=== PATIENT | female | born 1955 | race Two or more races ===

== ENCOUNTER 2024-04-23 00:34 | Emergency (ER) | payer MEDICARE, MEDICAID, SELFPAY ==
[2024-04-23] VITALS (9 sets, daily range): BP systolic 98–159; BP diastolic 65–84; PULSE 68–79; RESP 16–24; TEMP 36.7–36.8; O2SAT 93–100; BMI 26.5; BMI 25.6
--- NOTE | 2024-04-23 01:40 | PD.EDUPEX ---
Upper Extremity Injury RME/HPI General Chief Complaint: Extremity Injury, Upper Stated Complaint: LEFT ARM PAIN Arrival date/time: 04/23/24 00:34 Related Data Home Medications ?Medication ?Instructions ?Recorded ?Confirmed Hydrocodone/Acetaminophen * (NORCO 1 tab PO Q4H PRN Pain #0 tabs 04/05/15 09/29/23 10/325 *) albuterol sulfate 90 mcg/actuation 2 puff inhalation Q6HR PRN 04/05/15 09/29/23 aerosol inhaler (Proventil HFA) WHEEZING #0 inhalations gabapentin 300 mg capsule 300 mg PO QDAY #0 caps 04/05/15 09/29/23 ibuprofen 800 mg tablet 800 mg PO BID PRN PAIN #0 tabs 04/05/15 09/29/23 Held on 09/30/23. Instructions: until follow up with pcp loratadine 10 mg tablet (Claritin) 10 mg PO QDAY #0 tabs 04/05/15 09/29/23 sertraline 25 mg tablet (Zoloft) 25 mg PO HS #0 tabs 04/05/15 09/29/23 simvastatin 20 mg tablet (Zocor) 20 mg PO HS #0 tabs 04/05/15 09/29/23 tizanidine 4 mg tablet (Zanaflex) 4 mg PO Q6H #0 tabs 04/05/15 09/29/23 zolpidem 10 mg tablet (Ambien) 10 mg PO HS #0 tabs 04/05/15 09/29/23 meclizine 25 mg tablet 25 mg PO Q12H PRN Dizziness 09/29/23 09/29/23 Previous Rx's ?Medication ?Instructions ?Recorded Clotrimazole/Betamet Diprop LOTN * 1 appln TOP BID ##2 10/11/13 (LOTRISONE LOTN *) Allergies Allergy/AdvReac Type Severity Reaction Status Date / Time No Known Allergies Allergy Verified 09/28/23 18:54 Course Orders Category Date Time Status EKG (ED ONLY) *Do not use* NOW Care 04/23/24 01:02 Completed EKG (ED Only) Stat Exams 04/23/24 01:02 Ordered Vital Signs Vital signs: Vital Signs Temperature 98.1 F 04/23/24 00:46 Pulse Rate 68 04/23/24 00:46 Respiratory Rate 19 04/23/24 00:46 Blood Pressure 98/65 04/23/24 00:46 Pulse Oximetry (%) 95 04/23/24 00:46 Oxygen Delivery Method Room Air 04/23/24 00:46 Discharge Plan Prescriptions/Referrals Prescriptions/Med Rec: No Action Clotrimazole/Betamet Diprop LOTN * (LOTRISONE LOTN *) 30 ML lotion 1 appln TOP BID Qty: 2 0RF ibuprofen 800 MG tablet 800 mg PO BID PRN (Reason: PAIN) Qty: 0 tizanidine [Zanaflex] 4 MG tablet 4 mg PO Q6H Qty: 0 simvastatin [Zocor] 20 MG tablet 20 mg PO HS Qty: 0 gabapentin 300 MG capsule 300 mg PO QDAY Qty: 0 sertraline [Zoloft] 25 MG tablet 25 mg PO HS Qty: 0 zolpidem [Ambien] 10 MG tablet 10 mg PO HS Qty: 0 albuterol sulfate [Proventil HFA] 6.7 GM HFA aerosol inhaler 2 puff Inhalation Q6HR PRN (Reason: WHEEZING) Qty: 0 loratadine [Claritin] 10 MG tablet 10 mg PO QDAY Qty: 0 Hydrocodone/Acetaminophen * (NORCO 10/325 *) 1 TAB tablet 1 tab PO Q4H PRN (Reason: Pain) Qty: 0 meclizine 25 mg tablet 25 mg PO Q12H PRN (Reason: Dizziness) Patient Comments: TAKE ONE TABLET BY MOUTH EVERY TWELVE HOURS FOR DIZZINESS Patient/Caregiver Discharge Instructions Print Language: Italian
--- NOTE | 2024-04-23 02:10 | EDRME_ITS ---
Rapid Medical Screening Exam RME Arrival date/time: 04/23/24 00:34 Chief Complaint: Extremity Injury, Upper Vital signs: Vital Signs Temperature 98.1 F 04/23/24 00:46 Pulse Rate 68 04/23/24 00:46 Respiratory Rate 19 04/23/24 00:46 Blood Pressure 98/65 04/23/24 00:46 Pulse Oximetry (%) 95 04/23/24 00:46 Oxygen Delivery Method Room Air 04/23/24 00:46 RME Narrative: 68-year-old female with history of breast cancer presenting to the emergency department with chest pain that started approximately 8 PM which is intermittent and currently improved. Patient states the pain radiated to her left arm. No shortness of breath. The patient takes [place] at home for her chronic pain. I have greeted and performed a focused initial assessment of this patient. A comprehensive ED assessment and evaluation of the patient, analysis of all test results, and completion of the medical decision making process will be conducted by additional ED providers.
--- NOTE | 2024-04-23 02:16 | XR_ITS ---
Examination: AP chest single view Technique one AP portable upright chest single view Exam date and time: April 23, 2024 0220 hrs. Comparison September 26, 2023 Indications: Chest pain radiating to left arm today Findings: Mild to moderate enlargement cardiac contour Subtle opacity in the right middle lower lung zone Mild vascular congestion Prominent osteopenia Impression: Mild vascular congestion Suspicious for right mid and lower lung zone pneumonia
[2024-04-23 02:46] LABS: Basophils # (Auto) 0.1 Thou/mm3 (0.0-0.2); Basophils % (Auto) 0 % (0-2.5); Eosinophils % (Auto) 0 % (0-10); Hematocrit 32.3 % (36.0-46.0); Hemoglobin 10.8 g/dL (12.0-16.0); Immature Granulocytes % (Auto) 1 % (0-0); Immature Granulocytes Auto 0.08 Thou/mm3 (0.00-0.00); Lymphocytes # (Auto) 1.4 Thou/mm3 (1.0-4.8); Lymphocytes % (Auto) 8 % (10-50); Mean Corpuscular HGB Conc 33.4 g/dl (31.0-37.0); Mean Corpuscular Hemoglobin 28.1 pg (25.0-35.0); Mean Corpuscular Volume 84 fL (80-100); Monocytes # (Auto) 0.7 Thou/mm3 (0.0-0.8); Monocytes % (Auto) 4 % (0-12); Neutrophils % (Auto) 87 % (37-80); Nucleated Red Blood Cell % 0 /100 WBC (0); Platelet Count 410 Thou/mm3 (140-440); RDW Standard Deviation 50.1 fL (36.4-46.3); Red Blood Count 3.85 Miln/mm3 (4.00-5.20); White Blood Count 17.3 Thou/mm3 (3.6-11.0)
[2024-04-23] MEDS: HYDROcodone/APAP 10/325 TAB PO (02:58)
[2024-04-23] MEDS: SODIUM CHLORIDE 0.9% 500 ML 500 ML 999 ML IV (02:59)
[2024-04-23 03:08] LABS: B-Type Natriuretic Peptide 62 pg/mL (0-100)
[2024-04-23 03:20] LABS: Alanine Aminotransferase < 7 U/L (10-49); Albumin, Serum 4.1 gm/dL (3.4-4.8); Albumin/Globulin Ratio 1.3 (1.2-2.2); Alkaline Phosphatase 150 U/L (46-116); Anion Gap 9 (7-16); Aspartate Amino Transferase 10 U/L (0-34); BUN/Creatinine Ratio 14 Ratio (12-20); Bilirubin,Total 0.2 mg/dL (0.3-1.2); Blood Urea Nitrogen 19 mg/dL (9-23); Carbon Dioxide 21.4 mMol/L (20.0-31.0); Chloride 104 mMol/L (98-107); Creatinine (Component) 1.4 mg/dL (0.6-1.3); Estimated Creatinine Clearance 32.7 mL/min (>60); Globulin 3.1 gm/dL (2.3-3.5); Glucose 107 mg/dL (74-106); Osmolality,Calculated 270 (275-295); Potassium 4.6 mMol/L (3.4-5.1); Sodium 134 mMol/L (136-145); Total Protein 7.2 gm/dL (5.7-8.2); Troponin I < 0.002 ng/mL (0.0-0.045); eGFR 40 See Note
[2024-04-23] MEDS: LORazepam 2 MG/ML VIAL IVP (03:58)
[2024-04-23] MEDS: ALBUTEROL/IPRATROPIUM (Duoneb) RT SOL 3 ML NEBU INH (07:40)
[2024-04-23] MEDS: predniSONE 20 MG TABLET 60 MG PO (08:15)
--- NOTE | 2024-04-23 11:06 | EDNOTE_ITS ---
ED Chest Pain RME/HPI General Chief Complaint: Extremity Injury, Upper Stated Complaint: LEFT ARM PAIN Time Seen by Provider: 04/23/24 02:47 Arrival date/time: 04/23/24 00:34 RME / HPI RME / HPI narrative: 68-year-old female with history of breast cancer presenting to the emergency department with chest pain that started approximately 8 PM which is intermittent and currently improved. Patient states the pain radiated to her left arm. No shortness of breath. The patient takes [place] at home for her chronic pain. I have greeted and performed a focused initial assessment of this patient. A comprehensive ED assessment and evaluation of the patient, analysis of all test results, and completion of the medical decision making process will be conducted by additional ED providers. DR. MTZ MAIN ED EVALUATION: 68 year old female presents to the Emergency Department [facility] with complaint of left-sided pleuritic chest pain. Pain is described as aching and rated mild to moderate in severity. Patient also has a more than usual cough with productive sputum. PMHx: COPD, no home oxygen but does use an inhaler regularly, breast cancer, and chronic pain takes [place] Social Hx: She is a former smoker, last smoked a cigarette 2 years ago. Related Data Home Medications ?Medication ?Instructions ?Recorded ?Confirmed Hydrocodone/Acetaminophen * (NORCO 1 tab PO Q4H PRN Pa in #0 tabs 04/05/15 09/29/23 10/325 *) albuterol sulfate 90 mcg/actuation 2 puff inhalation Q 6HR PRN 04/05/15 09/29/23 aerosol inhaler (Proventil HFA) WHEEZING #0 inhalation s gabapentin 300 mg capsule 300 mg PO QDAY #0 caps 04/0509/29/23 ibuprofen 800 mg tablet 800 mg PO BID PRN PAIN #0 ta bs 04/05/15 09/29/23 Held on 09/30/23. Instructions: until follow up with pcp loratadine 10 mg tablet (Claritin) 10 mg PO QDAY #0 ta bs 04/05/15 09/29/23 sertraline 25 mg tablet (Zoloft) 25 mg PO HS #0 tabs 0 04/05/15 09/29/23 simvastatin 20 mg tablet (Zocor) 20 mg PO HS #0 tabs 0 04/05/15 09/29/23 tizanidine 4 mg tablet (Zanaflex) 4 mg PO Q6H #0 tabs 04/05/15 09/29/23 zolpidem 10 mg tablet (Ambien) 10 mg PO HS #0 tabs 01/0809/29/23 meclizine 25 mg tablet 25 mg PO Q12H PRN Dizziness 09/29/23 09/29/23 Previous Rx's ?Medication ?Instructions ?Recorded Clotrimazole/Betamet Diprop LOTN * 1 appln TOP BID ##2 10/11/13 (LOTRISONE LOTN *) doxycycline monohydrate 100 mg 100 mg PO BID #10 caps 04/23/24 capsule prednisone 50 mg tablet 50 mg PO QDAY #5 tabs Allergies Allergy/AdvReac Type Severity Reaction Status Date / Time No Known Allergies Allergy Verified 09/28/23 18:54 Review of Systems Review of Systems Systems Reviewed: All systems reviewed, normal except as documented Narrative Review of Systems: GEN: No fever, no chills, no weight loss EYES: No discharge, no visual changes, no pain HEENT: No ear pain, no congestion, no sore throat PULM: No shortness of breath, + more than usual cough with productive sputum CV: + left-sided pleuritic chest pain, no dyspnea on exertion, no palpitations GI: No nausea, no vomiting, no diarrhea, no pain, no constipation : No frequency, no urgency and no dysuria MUSC/SKEL: No joint pain, no back pain SKIN: No rash PSYCH: No hallucinations, no depression HEME/LYMPH: No easy bleeding or bruising tendencies NEURO: No weakness, no headache Past Medical History Past Medical History GASTROINTESTINAL: Positive Gastrointestinal Disorders and Gastroesophageal Reflux Disease PSYCHO/SOCIAL: Positive Anxiety Surgical History SURGICAL: Positive Mastectomy Social History SMOKING STATUS: Former smoker SUBSTANCE USE: does not use ALCOHOL: Never ED Exam Narrative Physical exam: GENERAL APPEARANCE: AxOx4, generally well-appearing, she is a little sleepy but arousable HEENT: NC, AT. MMM. EOMI, clear conjunctiva, oropharynx clear. NECK: Supple without lymphadenopathy. No stiffness or restricted ROM. HEART: Normal rate and regular rhythm, normal S1/S1, no m/r/g LUNGS: coarse rhonchi auscultated and some wheezing ABDOMEN: Soft, nontender, nondistended with good bowel sounds heard. BACK: No midline C/T/L spine pain or deformity, No CVAT, no obvious deformity. EXTREMITIES: Without cyanosis, clubbing or edema. MUSCULOSKELETAL: FROM of all major joints, no chest tenderness NEUROLOGICAL: Grossly nonfocal. Alert and oriented, moving all 4 extremities. CN not formally tested but appear grossly intact. Observed to ambulate with normal gait. Skin: Warm and dry without any rash. Course Quality Measures none Orders Category Date Time Status EKG (ED ONLY) *Do not use* NOW Care 04/23/24 01:02 Completed IV [Insert IV] STAT Care 04/23/24 02:15 Completed CXRP [XR chest 1V portable] Stat Exams 04/23/24 02:16 Completed EKG (ED Only) Stat Exams 04/23/24 01:02 Ordered BNP [B-Type Natriuretic Peptide] Stat Lab 04/23/24 02:36 Completed CBC Stat Lab 04/23/24 02:36 Completed CMP [Comprehensive Metabolic Panel] Stat Lab 04/23/24 02:36 Completed Troponin I Stat Lab 04/23/24 02:36 Completed Albuterol/Ipratr Rt Mariah [Duoneb Rt Mariah] Med 04/23/24 07:12 Discontinued 3 ml INH X1 ONE HYDROcodone/APAP 10/325 [[place] 10/325] Med 04/23/24 02:07 Discontinued 1 tab PO X1 ONE LORazepam [Ativan Inj] Med 04/23/24 03:55 Discontinued 2 mg IVP X1 ONE Sodium Chloride 0.9% 500 ml [Ns] 500 ml Med 04/23/24 02:15 Discontinued IV 999 mls/hr predniSONE Med 04/23/24 07:12 Discontinued 60 mg PO X1 ONE Oxygen Delivery NOW RT 04/23/24 07:41 Completed Vital Signs Vital signs: Vital Signs Temperature 98.1 F 04/23/24 00:46 Pulse Rate 68 04/23/24 00:46 Respiratory Rate 19 04/23/24 00:46 Blood Pressure 98/65 04/23/24 00:46 Pulse Oximetry (%) 95 04/23/24 00:46 Oxygen Delivery Method Room Air 04/23/24 00:46 Chest Pain MDM Narrative MDM Narrative:: I, Cat Rachel am scribing for and in the presence of Dr. Mtz. Patient data External records reviewed:: [facility] previous records (Reviewed last admission discharge dated 09/30/23, patient admitted for the following: Acute kidney injury) and EMS form Clinical information provided by:: patient and EMS Social determinants that could affect healthcare access:: other (specify) (She is a former smoker, last smoked a cigarette 2 years ago) Patient has the following chronic illnesses:: COPD, no home oxygen but does use an inhaler regularly, breast cancer, and chronic pain takes [place]. How is presenting disease/condition affected by chronic disease/condition?: exacerbated by Evaluation data The following diagnostics were reviewed and interpreted by me:: lab results and radiology exam(s) Lab and/or radiology exams considered but not ordered:: none Interpretation Summary: Procedure(s): XR chest 1V portable Accession Number(s): [id number] cc: Dave Christian MD; Jerson Mckeon MD; Nurys Kearns MD~ Examination: AP chest single view Technique one AP portable upright chest single view Exam date and time: April 23, 2024 0220 hrs. Comparison September 26, 2023 Indications: Chest pain radiating to left arm today Findings: Mild to moderate enlargement cardiac contour Subtle opacity in the right middle lower lung zone Mild vascular congestion Prominent osteopenia Impression: Mild vascular congestion Suspicious for right mid and lower lung zone pneumonia Dictated By: Jerson Mckeon MD Medications / Prescriptions Medications or Prescriptions considered but not ordered:: none Medication administrations:: Medication Administration History Discontinued Medications Hydrocodone Bitart/Acetaminophen (Hydrocodone/Apap 10/325 Tab) 1 tab PO X1 ONE Stop: 04/23/24 02:08 Last Admin: 04/23/24 02:58 Dose: 1 tab Documented By: PINO Albuterol/Ipratropium (Albuterol/Ipratropium (Duoneb) Rt Mariah 3 Ml Nebu) 3 ml INH X1 ONE Stop: 04/23/24 07:13 Last Admin: 04/23/24 07:40 Dose: 3 ml Documented By: PETE Sodium Chloride (Ns) 500 mls @ 999 mls/hr IV .Q31M ONE Stop: 04/23/24 02:45 Last Infusion: 04/23/24 03:46 Dose: Infused Documented By: Admin: 04/23/24 02:59 Dose: 999 mls/hr Documented By: PINO Lorazepam (Lorazepam 2 Mg/Ml Vial) 2 mg IVP X1 ONE Stop: 04/23/24 03:56 Last Admin: 04/23/24 03:58 Dose: 2 mg Documented By: PINO Prednisone (Prednisone 20 Mg Tablet) 60 mg PO X1 ONE Stop: 04/23/24 07:13 Last Admin: 04/23/24 08:15 Dose: 60 mg Documented By: GLORIA see above Consultations Consultation(s) initiated? (list below): No Diagnosis Chest Pain Differential Diagnosis: atypical chest pain, costochondritis and chest pain Most likely diagnosis given after review of the tests above:: COPD exacerbation Acute bronchitis Admission Indicated Admission indicated?: not indicated Admission Request Was there a request for admission?: No Disposition Plan Disposition Plan: Discharge Discharge Attestation Discharge Attestation: The patient and all family members were given an opportunity to ask questions and understood the discharge instructions. Discharge instructions specifically effects, indications for sooner follow up or return to the emergency department, and the expected course of current diagnosis. Patient condition: Stable Discharge Plan Plan Patient Disposition: HOME (Self Care) Prescriptions/Referrals Prescriptions/Med Rec: New prednisone 50 mg tablet 50 mg PO QDAY Qty: 5 0RF doxycycline monohydrate 100 mg capsule 100 mg PO BID Qty: 10 0RF No Action Clotrimazole/Betamet Diprop LOTN * (LOTRISONE LOTN *) 30 ML lotion 1 appln TOP BID Qty: 2 0RF ibuprofen 800 MG tablet 800 mg PO BID PRN (Reason: PAIN) Qty: 0 tizanidine [Zanaflex] 4 MG tablet 4 mg PO Q6H Qty: 0 simvastatin [Zocor] 20 MG tablet 20 mg PO HS Qty: 0 gabapentin 300 MG capsule 300 mg PO QDAY Qty: 0 sertraline [Zoloft] 25 MG tablet 25 mg PO HS Qty: 0 zolpidem [Ambien] 10 MG tablet 10 mg PO HS Qty: 0 albuterol sulfate [Proventil HFA] 6.7 GM HFA aerosol inhaler 2 puff Inhalation Q6HR PRN (Reason: WHEEZING) Qty: 0 loratadine [Claritin] 10 MG tablet 10 mg PO QDAY Qty: 0 Hydrocodone/Acetaminophen * (NORCO 10/325 *) 1 TAB tablet 1 tab PO Q4H PRN (Reason: Pain) Qty: 0 meclizine 25 mg tablet 25 mg PO Q12H PRN (Reason: Dizziness) Patient Comments: TAKE ONE TABLET BY MOUTH EVERY TWELVE HOURS FOR DIZZINESS Referrals: Dave Christian MD [Primary Care Provider] - In 1 week Problem List Clinical Impression: COPD exacerbation, Acute bronchitis Patient/Caregiver Discharge Instructions Education Materials: ED Bronchitis with Wheezing (Adult), ED COPD Flare Additional Instructions: Follow-up with your primary care in 2 to 3 days for recheck. Return to the emergency department sooner if symptoms worsen or if you notice any new, concerning issues. Print Language: Upper Sorbian Stand Alone Forms: [facility]ie Award Info., Patient Portal Info Letter
== END 2024-04-23 10:11 | disposition home or self-care (01) ==
PROVIDERS: Emergency Medicine; Emergency Provider Emergency Medicine; PCP Family Medicine
DX: J44.1 Chronic obstructive pulmonary disease with (acute) exacerbation (principal); J44.0 Chronic obstructive pulmonary disease with (acute) lower respiratory infection; J20.9 Acute bronchitis, unspecified; R09.89 Other specified symptoms and signs involving the circulatory and respiratory systems; Z87.891 Personal history of nicotine dependence
CPT/HCPCS: 36415; 71045; 80053; 83880; 84484; 85025; 93005; 94640; 96361; 96374; 99284; A9270; J2060; J7040; J7512

== ENCOUNTER 2024-06-04 15:50 | Emergency (ER) | payer MEDICARE, MEDICAID, SELFPAY ==
[2024-06-04 16:17] VITALS: BP 115/73; PULSE 97; RESP 20; TEMP 36.6; O2SAT 95
--- NOTE | 2024-06-04 16:33 | XR_ITS ---
Examination: Left wrist 2 views Technique one AP lateral left wrist 2 views Exam date and time: June 04, 2024 1647 hrs. Indications: Injury to the wrist today, wrist pain. Findings: Soft tissue swelling dorsum of the wrist No acute fracture Impression: No acute fracture
--- NOTE | 2024-06-04 16:33 | XR_ITS ---
Examination: Right wrist 2 views Technique: AP lateral right wrist 2 views Indications: Injury to the wrist today, wrist pain. Findings: Prominent osteopenia. No acute fracture No dislocation Impression: No acute fracture
--- NOTE | 2024-06-04 16:33 | XR_ITS ---
Examination: Hand, right 2 views Technique: Hand AP, lateral 2 views Date and time of exam: June 04, 2024 1638 hrs. Indications: Injury to the hand today, hand pain Findings: Prominent osteopenia No acute fracture No dislocation Impression: No acute fracture
--- NOTE | 2024-06-04 16:33 | XR_ITS ---
Examination: Hand, left 2 views Technique: Hand AP, lateral 2 views Date and time of exam: June 04, 2024 1652 hrs. Indications: Patient fell 5 days ago with injury to the hand, hand pain Findings: Severe osteopenia No acute fracture No dislocation No foreign body Impression: No acute fracture
--- NOTE | 2024-06-04 16:39 | EDNOTE_ITS ---
<Statement entered by Salma Hernandez MD - 06/17/24 06:47> As co-signing physician, I was present and available for consult prn. I concur with the plan and care as documented by the midlevel provider. Upper Extremity Injury RME/HPI General Chief Complaint: Hand/Wrist Problems Stated Complaint: RIGHT WRIST INJURY Time Seen by Provider: 06/04/24 16:08 Arrival date/time: 06/04/24 15:50 This is a 69-year-old female that comes into the emergency room with complaints of bilateral arm pain. Patient states that she fell initially and landed on her right wrist and when she was trying to get up she accidentally fell on her left wrist. Patient states this happened a few days ago. Patient has a history of hyperlipidemia depression, Related Data Home Medications ?Medication ?Instructions ?Recorded ?Confirmed Hydrocodone/Acetaminophen * (NORCO 1 tab PO Q4H PRN Pa in #0 tabs 04/05/15 09/29/23 10/325 *) albuterol sulfate 90 mcg/actuation 2 puff inhalation Q 6HR PRN 04/05/15 09/29/23 aerosol inhaler (Proventil HFA) WHEEZING #0 inhalation s gabapentin 300 mg capsule 300 mg PO QDAY #0 caps 04/0509/29/23 ibuprofen 800 mg tablet 800 mg PO BID PRN PAIN #0 ta bs 04/05/15 09/29/23 Held on 09/30/23. Instructions: until follow up with pcp loratadine 10 mg tablet (Claritin) 10 mg PO QDAY #0 ta bs 04/05/15 09/29/23 sertraline 25 mg tablet (Zoloft) 25 mg PO HS #0 tabs 0 04/05/15 09/29/23 simvastatin 20 mg tablet (Zocor) 20 mg PO HS #0 tabs 0 04/05/15 09/29/23 tizanidine 4 mg tablet (Zanaflex) 4 mg PO Q6H #0 tabs 04/05/15 09/29/23 zolpidem 10 mg tablet (Ambien) 10 mg PO HS #0 tabs 01/0809/29/23 meclizine 25 mg tablet 25 mg PO Q12H PRN Dizziness 09/29/23 09/29/23 Previous Rx's ?Medication ?Instructions ?Recorded Clotrimazole/Betamet Diprop LOTN * 1 appln TOP BID ##2 10/11/13 (LOTRISONE LOTN *) doxycycline monohydrate 100 mg 100 mg PO BID #10 caps 04/23/24 capsule prednisone 50 mg tablet 50 mg PO QDAY #5 tabs acetaminophen 500 mg tablet 1,000 mg (2 x 500 mg) PO Q 6H PRN 06/04/24 pain #20 tabs Allergies Allergy/AdvReac Type Severity Reaction Status Date / Time No Known Allergies Allergy Verified 06/04/24 15:52 Review of Systems Review of Systems Systems Reviewed: All systems reviewed, normal except as documented Past Medical History Past Medical History GASTROINTESTINAL: Positive Gastrointestinal Disorders and Gastroesophageal Reflux Disease PSYCHO/SOCIAL: Positive Anxiety Surgical History SURGICAL: Positive Mastectomy Social History SMOKING STATUS: Former smoker SUBSTANCE USE: does not use ALCOHOL: Never ED Exam General General appearance: Present alert and in no apparent distress Head Head exam: Present atraumatic Eye Eye exam: Present normal appearance, PERRL and EOMI ENT ENT exam: Present normal exam, normal oropharynx and mucous membranes moist Neck Neck exam: Present normal inspection, full ROM and trachea midline Chest Chest inspection: Present normal inspection and symmetric chest wall rise Respiratory Respiratory exam: Present other (breathing even and unlabored ) Cardiovascular Cardiovascular exam: Present regular rate and other (cap refill less than 2 seconds ) Abdominal Exam Abdominal exam: Present soft Extremities Exam Extremities exam: Present full ROM (no snuffbox tenderness bilaterally ) Back Exam Back exam: Present normal inspection and full ROM Neurological Exam Neurological exam: Present alert, oriented X3 and CN II-XII intact Psychiatric Psychiatric exam: Present normal affect and normal mood Skin Skin exam: Present warm, dry, intact and normal color Course Quality Measures none Orders Category Date Time Status XR hand LT 2V Stat Exams 06/04/24 16:33 Completed XR hand RT 2V Stat Exams 06/04/24 16:33 Completed XR wrist LT 2V Stat Exams 06/04/24 16:33 Completed XR wrist RT 2V Stat Exams 06/04/24 16:33 Completed Acetaminophen Tab [Tylenol ES Tab] Med 06/04/24 16:33 Discontinued 1,000 mg PO X1 ONE Vital Signs Vital signs: Vital Signs Temperature 97.8 F 06/04/24 16:17 Pulse Rate 97 06/04/24 16:17 Respiratory Rate 20 06/04/24 16:17 Blood Pressure 115/73 06/04/24 16:17 Pulse Oximetry (%) 95 06/04/24 16:17 Oxygen Delivery Method Room Air 06/04/24 16:17 Extremity Injury MDM Narrative MDM Narrative:: left hand: Findings: Severe osteopenia No acute fracture No dislocation No foreign body Impression: No acute fracture right hand: Findings: Prominent osteopenia No acute fracture No dislocation Impression: No acute fracture right wrist: Findings: Prominent osteopenia. No acute fracture No dislocation Impression: No acute fracture left wrist: Findings: Soft tissue swelling dorsum of the wrist No acute fracture Impression: No acute fracture Today patient had xrays There was no acute fracture seen. Exam appeared unremarkable. I explained to patient at length that if there was continued pain to this area or worsened to come back to ED or see primary provider for more xrays or further testing such as CT scan or MRI. X rays are not perfect and sometimes serial films needed. Patient verbalized understanding. Patient states they will follow up with primary provider in 1-2 days or come back to ED if symptoms change or worsen. Patient data External records reviewed:: [facility] previous records Clinical information provided by:: patient Social determinants that could affect healthcare access:: none Patient has the following chronic illnesses:: none How is presenting disease/condition affected by chronic disease/condition?: no chronic disease Evaluation data The following diagnostics were reviewed and interpreted by me:: radiology exam(s) Lab and/or radiology exams considered but not ordered:: none Interpretation Summary: see note Medications / Prescriptions Medications or Prescriptions considered but not ordered:: none Medication administrations:: Medication Administration History Discontinued Medications Acetaminophen (Acetaminophen 500 Mg Tablet) 1,000 mg PO X1 ONE Stop: 06/04/24 16:34 Last Admin: 06/04/24 17:22 Dose: 1,000 mg Documented By: KM Comments: bar code on medication not scanning see [facility] Consultations Consultation(s) initiated? (list below): No Diagnosis Upper Extremity Injury Differential Diagnosis: sprain and strain of wrist, fracture of wrist and fracture of hand Most likely diagnosis given after review of the tests above:: contusion Admission Indicated Admission indicated?: not indicated Admission Request Was there a request for admission?: No Disposition Plan Disposition Plan: Discharge Discharge Attestation Discharge Attestation: The patient and all family members were given an opportunity to ask questions and understood the discharge instructions. Discharge instructions specifically effects, indications for sooner follow up or return to the emergency department, and the expected course of current diagnosis. Patient condition: Stable Discharge Plan Plan Patient Disposition: HOME (Self Care) Patient condition on transfer: Stable Prescriptions/Referrals Prescriptions/Med Rec: New acetaminophen 500 mg tablet 1,000 mg PO Q6H PRN (Reason: pain) Qty: 20 0RF No Action Clotrimazole/Betamet Diprop LOTN * (LOTRISONE LOTN *) 30 ML lotion 1 appln TOP BID Qty: 2 0RF ibuprofen 800 MG tablet 800 mg PO BID PRN (Reason: PAIN) Qty: 0 tizanidine [Zanaflex] 4 MG tablet 4 mg PO Q6H Qty: 0 simvastatin [Zocor] 20 MG tablet 20 mg PO HS Qty: 0 gabapentin 300 MG capsule 300 mg PO QDAY Qty: 0 sertraline [Zoloft] 25 MG tablet 25 mg PO HS Qty: 0 zolpidem [Ambien] 10 MG tablet 10 mg PO HS Qty: 0 albuterol sulfate [Proventil HFA] 6.7 GM HFA aerosol inhaler 2 puff Inhalation Q6HR PRN (Reason: WHEEZING) Qty: 0 loratadine [Claritin] 10 MG tablet 10 mg PO QDAY Qty: 0 Hydrocodone/Acetaminophen * (NORCO 10/325 *) 1 TAB tablet 1 tab PO Q4H PRN (Reason: Pain) Qty: 0 meclizine 25 mg tablet 25 mg PO Q12H PRN (Reason: Dizziness) Patient Comments: TAKE ONE TABLET BY MOUTH EVERY TWELVE HOURS FOR DIZZINESS prednisone 50 mg tablet 50 mg PO QDAY Qty: 5 0RF doxycycline monohydrate 100 mg capsule 100 mg PO BID Qty: 10 0RF Referrals: Dave Christian MD [Primary Care Provider] - In 1 week Problem List Clinical Impression: Contusion Patient/Caregiver Discharge Instructions Discharge Activity: activity as tolerated Education Materials: Contusion Bone Tx Additional Instructions: Follow up with primary provider in 1-2 days. Come back to ED if symptoms change or worsen Print Language: Estonian Stand Alone Forms: Kacie Award Info., Patient Portal Info Letter PA/CRANE HOIST OR LIFT OPERATOR Supervising Physician PA/CRANE HOIST OR LIFT OPERATOR Supervising Physician: dandre
[2024-06-04] MEDS: ACETAMINOPHEN 500 MG TABLET 1000 MG PO (17:22)
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
== END 2024-06-04 18:30 | disposition home or self-care (01) ==
PROVIDERS: Emergency Provider Emergency Medicine; PCP Family Medicine
DX: S60.212A Contusion of left wrist, initial encounter (principal); S60.211A Contusion of right wrist, initial encounter; S60.222A Contusion of left hand, initial encounter; S60.221A Contusion of right hand, initial encounter; W19.XXXA Unspecified fall, initial encounter
CPT/HCPCS: 73100; 73120; 99283; A9270

== ENCOUNTER 2024-12-31 14:49 | Emergency (ER) | payer MEDICARE, MEDICAID, SELFPAY ==
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
[2024-12-31 15:03] VITALS: BP 166/91; PULSE 90; RESP 20; TEMP 36.8; O2SAT 95
--- NOTE | 2024-12-31 15:11 | XR_ITS ---
Examination: CT brain head without contrast. 2-D sagittal coronal reconstructions Date and time of exam: 12/31/2024, 3:27 p.m. INDICATION: Headache COMPARISON: 8 424 weeks CTDI: vol (mGy): 48.5 DLP: (mGycm): 946 Technique: Multiple CT axial sections of the brain have been obtained, 5 mm slice thickness. Contrast has not been administered. 2-D sagittal, coronal reconstructions have been obtained Low dose protocols were performed. One or more of the following dose reduction techniques were used; automated exposure control, adjustment of the mA and/or KV according to patient size, use of iterative reconstruction technique. Findings: Mild diffuse cortical atrophy with associated ventricular and extra-axial enlargement. Periventricular low-density white matter changes consistent with chronic small vessel disease. Intra-axial or extra-axial hemorrhage density is not seen. No mass effect or midline shift Basal cisterns are not remarkable. Fourth ventricle is midline. Cranial vault intact. Impression: Negative for acute hemorrhage, mass effect or midline shift Stable chronic changes as above.
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
[2024-12-31] MEDS: ACETAMINOPHEN 500 MG TABLET 1000 MG PO (16:31)
== END 2024-12-31 16:46 | disposition home or self-care (01) ==
PROVIDERS: Emergency Provider Emergency Medicine; PCP Family Medicine
DX: S00.03XA Contusion of scalp, initial encounter (principal); S52.512D Displaced fracture of left radial styloid process, subsequent encounter for closed fracture with routine healing; S52.602A Unspecified fracture of lower end of left ulna, initial encounter for closed fracture; Y04.0XXA Assault by unarmed brawl or fight, initial encounter; Y92.009 Unspecified place in unspecified non-institutional (private) residence as the place of occurrence of the external cause
CPT/HCPCS: 29125; 70450; 73090; 99283; A9270